=== PATIENT | female | born 2000 | race Hispanic/Latino ===

== ENCOUNTER 2021-02-10 15:26 | Emergency (ER) | payer SELFPAY ==
[2021-02-10 20:08] LABS: Urine Blood Trace-lysed (Negative); Urine Glucose Negative (Negative); Urine Protein Trace (Negative); Urine Specific Gravity 1.015 (1.005-1.030)
[2021-02-10 20:22] LABS: Urine Specific Gravity/Preg 1.015 (1.005-1.030)
[2021-02-10] MEDS ORDERED: IBUPROFEN 400 MG TAB ONE (20:51)
[2021-02-10] MEDS ORDERED: CLINDAMYCIN IV 150 MG/ML (4 mL) VIAL ONE (21:01)
--- NOTE | 2021-02-10 21:05 | EDPHYS ---
Physician Documentation [facility] Name: Maria Del Rosario Limon Age: 20 yrs Sex: Female : 2000 Arrival Date: 02/10/2021 Time: 15:28 Bed Treatment Private MD: ED Physician Jack Montana HPI: 02/10 20:05 This 20 yrs old Female presents to ER via Ambulatory with complaints of Fever, cp Headache, Sore Throat. 20:05 The patient complains of pain to the top of head. The patient describes the headache as cp aching. Onset: The symptoms/episode began/occurred today. Associated signs and symptoms: Pertinent positives: fever, sore throat, right breast pain. Severity of symptoms: in the emergency department the pain is unchanged, despite home interventions. [employer]: 16:10 LMP N/A - Recent ca1 Historical: - Allergies: 16:10 PENICILLINS; ca1 - Home Meds: 16:10 None [Active]; ca1 - PMHx: 16:10 None; ca1 - PSHx: 16:10 None; ca1 - Immunization history:: Client reports having NOT received the Covid vaccine. - Social history:: Smoking status: Patient denies any tobacco usage or history of. ROS: 20:10 Constitutional: Negative for chills, fever, poor PO intake. cp 20:10 Eyes: Negative for injury, pain, redness, and discharge. cp 20:10 ENT: Positive for sore throat, Negative for drainage from ear(s), ear pain, difficulty swallowing, difficulty handling secretions. 20:10 Cardiovascular: Negative for chest pain. 20:10 Respiratory: Negative for cough, shortness of breath, wheezing. 20:10 Abdomen/GI: Negative for abdominal pain, nausea, vomiting, and diarrhea. 20:10 Back: Negative for pain at rest, pain with movement. 20:10 : Negative for urinary symptoms, vaginal bleeding, vaginal discharge. 20:10 Neuro: Positive for headache, Negative for altered mental status, weakness. 20:10 All other systems are negative. Exam: 20:15 Constitutional: The patient appears in no acute distress, alert, awake, comfortable, cp non-toxic, well developed, well nourished. 20:15 Head/Face: Normocephalic, atraumatic. cp 20:15 Eyes: Periorbital structures: appear normal, Pupils: equal, round, and reactive to light and accomodation, Extraocular movements: intact throughout, Conjunctiva: normal, no exudate, no injection, Sclera: no appreciated abnormality, Lids and lashes: appear normal, bilaterally. 20:15 ENT: External ear(s): are unremarkable, Ear canal(s): are normal, clear, TM's: dullness, bilaterally, Nose: is normal, Mouth: Lips: moist, Oral mucosa: pink and intact, moist, Posterior pharynx: Airway: no evidence of obstruction, patent, Tonsils: are normal in appearance, erythema, that is mild, exudate, is not appreciated, Voice: is normal. 20:15 Neck: ROM/movement: is normal, is supple, no meningismus, no nuchal rigidity, Lymph nodes: no appreciated lymphadenopathy. 20:15 Chest/axilla: Inspection: normal, Breasts: swelling, that is mild of the right breast, lateral upper area with noted mild erythema, skin warm to touch, tenderness, that is moderate, of the right breast. 20:15 Cardiovascular: Rate: tachycardic, Rhythm: regular, Edema: is not appreciated, JVD: is not appreciated. 20:15 Respiratory: the patient does not display signs of respiratory distress, Respirations: normal, no use of accessory muscles, no retractions, labored breathing, is not present, Breath sounds: are clear throughout, no decreased breath sounds, no stridor, no wheezing. 20:15 Abdomen/GI: Inspection: abdomen appears normal, Palpation: abdomen is soft and non-tender, in all quadrants. 20:15 Back: CVA tenderness, is absent. 20:15 Neuro: Orientation: to person, place \T\ time. Mentation: is normal, Motor: moves all fours, strength is normal, Gait: is steady, at a normal pace, without difficulty. Vital Signs: 16:08 BP 111 / 73; Pulse 121; Resp 18 S; Temp 99.5(TE); Pulse Ox 99% on R/A; Weight 62.6 kg ca1 (R); Height 5 ft. 4 in. (162.56 cm) (R); 20:30 Temp 103.4(O); aa5 21:30 BP 115 / 78; Pulse 110; Resp 20 S; Temp 101.0(O); Pulse Ox 99% on R/A; aa5 16:08 Body Mass Index 23.69 (62.60 kg, 162.56 cm) ca1 20:30 PA notified of temperature aa5 21:30 PA notified of temperature. aa5 MDM: 19:50 Patient medically screened. cp 20:00 Differential diagnosis: meningitis, meningoencephalitis, migraine, cellulitis, abscess, cp UTI, COVID-19, influenza, strep throat. 21:05 Data reviewed: vital signs, nurses notes, lab test result(s). cp 21:05 Counseling: I had a detailed discussion with the patient and/or guardian regarding: the cp historical points, exam findings, and any diagnostic results supporting the discharge/admit diagnosis, lab results, the need for outpatient follow up, a family practitioner, to return to the emergency department if symptoms worsen or persist or if there are any questions or concerns that arise at home. Response to treatment: the patient's symptoms have mildly improved after treatment. ED course: VSS. Patient appears non-toxic. Will discharge to home with oral antibiotics. Patient instructed to return to ED worsening symptoms. Recommend OTC acetaminophen and/or ibuprofen for fever and pain. 02/10 16:08 Order name: Flu ca1 02/10 16:08 Order name: Strep; Complete Time: 20:50 ca1 02/10 16:08 Order name: Influenza Screen (A ; Complete Time: 20:50 [facility] 02/10 17:35 Order name: Throat Culture [facility] 02/10 18:12 Order name: SARS-COV-2 RT PCR; Complete Time: 20:50 [facility] 02/10 19:50 Order name: Urine Microscopic Only; Complete Time: 15:56 cp 02/10 19:50 Order name: Urine Dipstick-Ancillary (obtain specimen); Complete Time: 20:10 02/10 20:08 Order name: Urine Dipstick-Ancillary; Complete Time: 20:50 [facility] 02/10 20:51 Interpretation: Normal except: UBLD Trace-lysed; UPROT Trace; UESTR 2+. 02/10 20:11 Order name: Urine --Ancillary (enter results); Complete Time: 20:50 mw2 02/10 21:13 Order name: Urine Culture [facility] 02/10 19:50 Order name: Urine Test (obtain specimen); Complete Time: 20:10 cp 02/10 19:59 Order name: Misc. Order: need room for exam; Complete Time: 20:01 cp Administered Medications: 20:45 Drug: Ibuprofen 800 mg Route: PO; aa5 21:39 Follow up: Response: No adverse reaction; Temperature is decreased aa5 20:47 Drug: Clindamycin 600 mg {Note: 300mg given to right gluteus and 300mg given to left aa5 gluteus. .} Route: IM; Site: right gluteus; 21:00 Follow up: Response: No adverse reaction aa5 21:39 Drug: Tylenol 1000 mg Route: PO; aa5 21:39 Follow up: Response: Medication administered at discharge. aa5 Disposition Summary: 02/10/21 21:05 Discharge Ordered Location: Home cp Problem: new cp Symptoms: have improved cp Condition: Stable cp Diagnosis - Mastitis without abscess cp - UTI/ Urinary tract infection, site not specified cp Followup: cp - With: Private Physician - When: 1 - 2 days - Reason: Recheck today's complaints Discharge Instructions: - Discharge Summary Sheet cp - Mastitis cp - Urinary Tract Infection, Adult cp Forms: - Medication Reconciliation Form cp - Thank You Letter cp - Antibiotic Education cp - Prescription Opioid Use cp Prescriptions: - Clindamycin HCl 300 mg Oral Capsule - take 1 capsule by ORAL route every 6 hours for 10 days; 40 capsule; Refills: 0, cp Product Selection Permitted - Ibuprofen 800 mg Oral Tablet - take 1 tablet by ORAL route every 8 hours As needed take with food; 30 tablet; cp Refills: 0, Product Selection Permitted - Zofran 4 mg Oral Tablet - take 1 tablet by ORAL route every 12 hours As needed; 20 tablet; Refills: 0, cp Product Selection Permitted - Bactrim DS 800-160 mg Oral Tablet - take 1 tablet by ORAL route every 12 hours for 10 days; 20 tablet; Refills: 0, cp Product Selection Permitted Signatures: Dispatcher [employer] Mona Nieto RN RN aa5 Cruzito Davila PA PA cp Tesha Anderson RN RN ca1 Corrections: (The following items were deleted from the chart) 16:59 16:08 CORONAVIRUS+ARIELCherri ordered. EDMS EDMS
--- NOTE | 2021-02-10 21:05 | ER ---
Nurse's Notes [facility] Name: Maria Del Rosario Limon Age: 20 yrs Sex: Female : 2000 Arrival Date: 02/10/2021 Time: 15:28 Bed Treatment Private MD: Diagnosis: Mastitis without abscess;UTI/ Urinary tract infection, site not specified Presentation: 02/10 16:08 Chief complaint: Patient states: Headache, fever sore throat since yesterday. ca1 Coronavirus screen: Client denies travel out of the [place] in the last 14 days. fever, headache, sore throat, Client presents with at least one sign or symptom that may indicate coronavirus-19. Standard/surgical mask placed on the client. Provider contacted for isolation considerations. Ebola Screen: Patient negative for fever greater than or equal to 101.5 degrees Fahrenheit, and additional compatible Ebola Virus Disease symptoms Patient denies exposure to infectious person. Patient denies travel to an Ebola-affected area in the 21 days before illness onset. No symptoms or risks identified at this time. Initial Sepsis Screen: Does the patient meet any 2 criteria? No. Patient's initial sepsis screen is negative. Does the patient have a suspected source of infection? No. Patient's initial sepsis screen is negative. Risk Assessment: Do you want to hurt yourself or someone else? Patient reports no desire to harm self or others. Onset of symptoms was February 10, 2021. 16:08 Method Of Arrival: Ambulatory ca1 16:08 Acuity: HARMONY 4 ca1 CHANNEL MANAGER: 16:10 LMP N/A - Recent ca1 Historical: - Allergies: 16:10 PENICILLINS; ca1 - Home Meds: 16:10 None [Active]; ca1 - PMHx: 16:10 None; ca1 - PSHx: 16:10 None; ca1 - Immunization history:: Client reports having NOT received the Covid vaccine. - Social history:: Smoking status: Patient denies any tobacco usage or history of. Screenin:30 Abuse screen: Denies threats or abuse. Nutritional screening: No deficits noted. aa5 Tuberculosis screening: No symptoms or risk factors identified. Fall Risk None identified. Assessment: 19:30 General: Appears comfortable, Behavior is calm, cooperative. Pain: Complains of pain in aa5 right breast and head Pain currently is 7 out of 10 on a pain scale. Quality of pain is described as aching, tender, Pain began 1 day ago. Is continuous. Neuro: Level of Consciousness is awake, alert, obeys commands, Oriented to person, place, time, situation. Cardiovascular: Heart tones S1 S2 present Rhythm is regular. Respiratory: Airway is patent Respiratory effort is even, unlabored, Respiratory pattern is regular, symmetrical, Breath sounds are clear bilaterally. GI: Abdomen is round non-distended, Bowel sounds present X 4 quads. Abd is soft and non tender X 4 quads. : Denies burning with urination. EENT: Reports nasal discharge that is watery. Derm: Skin is pink, warm \T\ dry. Mild redness noted to right breast and hot to touch. Musculoskeletal: Range of motion: intact in all extremities. 20:30 Neuro: Level of Consciousness is awake, alert, obeys commands, Oriented to person, aa5 place, time, situation. Respiratory: Airway is patent Respiratory effort is even, unlabored, Respiratory pattern is regular, symmetrical. Derm: Skin is dry, Skin is normal, Skin temperature is hot. 21:30 Reassessment: Patient is alert, oriented x 3, equal unlabored respirations, skin aa5 warm/dry/pink. Vital Signs: 16:08 BP 111 / 73; Pulse 121; Resp 18 S; Temp 99.5(TE); Pulse Ox 99% on R/A; Weight 62.6 kg ca1 (R); Height 5 ft. 4 in. (162.56 cm) (R); 20:30 Temp 103.4(O); aa5 21:30 BP 115 / 78; Pulse 110; Resp 20 S; Temp 101.0(O); Pulse Ox 99% on R/A; aa5 16:08 Body Mass Index 23.69 (62.60 kg, 162.56 cm) ca1 20:30 PA notified of temperature aa5 21:30 PA notified of temperature. aa5 ED Course: 15:28 Patient arrived in ED. rg4 16:10 Triage completed. ca1 16:10 Arm band placed on right wrist. ca1 19:30 Patient has correct armband on for positive identification. aa5 19:45 Mona Peter, RN is Primary Nurse. aa5 19:47 Cruzito Davila PA is PHCP. cp 19:47 Jack Montana MD is Attending Physician. cp 21:39 No provider procedures requiring assistance completed. Patient did not have IV access aa5 during this emergency room visit. Administered Medications: 20:45 Drug: Ibuprofen 800 mg Route: PO; aa5 21:39 Follow up: Response: No adverse reaction; Temperature is decreased aa5 20:47 Drug: Clindamycin 600 mg {Note: 300mg given to right gluteus and 300mg given to left aa5 gluteus. .} Route: IM; Site: right gluteus; 21:00 Follow up: Response: No adverse reaction aa5 21:39 Drug: Tylenol 1000 mg Route: PO; aa5 21:39 Follow up: Response: Medication administered at discharge. aa5 Outcome: 21:05 Discharge ordered by . cp 21:39 Patient left the ED. cp 21:39 Discharged to home ambulatory. aa5 21:39 Condition: stable 21:39 Discharge instructions given to patient, Instructed on discharge instructions, follow up and referral plans. medication usage, Demonstrated understanding of instructions, follow-up care, medications, Prescriptions given X 4, Pt advised to pump and dump (pt is breast feeding) while taking antibiotics by PA, pt verbalized understanding. Signatures: Mona Peter RN RN aa5 Cruzito Davila PA PA cp Garcia, Rubi rg4 Tesha Anderson RN RN ca1 Corrections: (The following items were deleted from the chart) 22:51 20:30 Temp 103.4F Oral; aa5 aa5 22:51 21:30 BP 115 / 78; Pulse 110bpm; Resp 20bpm; Spontaneous; Pulse Ox 99% RA; Temp 101.0F aa5 Oral; aa5 23:25 19:30 Derm: Skin is pink, warm \T\ dry. aa5 aa5
[2021-02-10 21:11] LABS: Urine Bacteria 20-50 /HPF (<20); Urine RBC <5 /HPF (NONE SEEN)
[2021-02-10 21:48] VITALS: BP 111/73; O2SAT 99
[2021-02-10] MEDS ORDERED: ACETAMINOPHEN 500 MG TAB ONE (21:51)
[2021-02-10 21:53] VITALS: TEMP 103.4
== END 2021-02-10 21:39 | disposition home or self-care (01) ==
LOC: ER 15:26
DX: N39.0 Urinary tract infection, site not specified (principal); N61.0 Mastitis without abscess; Z20.822 Contact with and (suspected) exposure to COVID-19; Z88.0 Allergy status to penicillin
CPT/HCPCS: 81003; 81015; 81025; 87070; 87081; 87086; 87088; 87804; 96372; 99283; S0077; U0003